=== PATIENT | male | born 1980 | race Hispanic/Latino ===

== ENCOUNTER 2020-11-15 20:51 | Emergency (ER) | payer OTHER ==
[2020-11-15] MEDS ORDERED: KETOROLAC TROMETHAMINE 30MG/ML ONE (21:11)
[2020-11-15] MEDS ORDERED: DIAZEPAM 5 MG TABLET ONE (21:12)
[2020-11-15] MEDS ORDERED: DEXAMETHASONE SOD PHOSPHATE 10MG/ML 1ML VIAL ONE (21:57)
== END 2020-11-15 22:33 | disposition home or self-care (01) ==
LOC: EDH 20:51
DX: M54.41 Lumbago with sciatica, right side (principal); E11.9 Type 2 diabetes mellitus without complications
CPT/HCPCS: 96372 ×2; 99284; J1100; J1885